=== PATIENT | male | born 1985 | race Caucasian/White ===

== ENCOUNTER 2019-09-23 19:21 | Emergency (ER) | payer OTHER ==
[2019-09-23 19:40] VITALS: BP 100/63; PULSE 75; TEMP 99.1; BMI 25.7
--- NOTE | 2019-09-23 20:29 | PDOC ---
History of Present Illness - General Chief Complaint: Wound Stated Complaint: RL INFECTION Time Seen by Provider: 09/23/19 19:43 History Source: Patient Exam Limitations: No Limitations Past History - Travel History Traveled outside of the country in the last 30 days: No Close contact w/someone who was outside of country & ill: No - Medical History Home Medications: Ambulatory Orders Cephalexin Monohydrate [Keflex -] 500 mg PO BID #14 capsule 09/23/19 Sulfamethoxazole/Trimethoprim [Bactrim Ds -] 1 tab PO BID #14 tablet 09/23/19 COPD: No - Psycho-Social/Smoking History Smoking History: Never smoked - Substance Abuse Hx (Audit-C & DAST Scrn) How often the patient has a drink containing alcohol: Never Score: In Men: 4 or > Positive; In Women: 3 or > Positive: 0 Screen Result (Pos requires Nsg. Audit-10AR): Negative In the last yr the pt used illegal drug/Rx for NonMed reason: Yes Score: Yes response is considered Positive: 1 Screen Result (Positive result requires Nsg. DAST-10): Positive Review of Systems - Review of Systems Able to Perform ROS?: Yes Comments:: 09/23/19 20:23 CONSTITUTIONAL: Absent: fever, chills, diaphoresis, generalized weakness, malaise, loss of appetite MUSCULOSKELETAL: Absent: myalgia, arthralgia, joint swelling SKIN: Present: skin infection Absent: rash, itching, pallor NEUROLOGIC: Absent: headache, focal weakness or paresthesias, dizziness, unsteady gait, seizure, mental status changes, bladder or bowel incontinence PSYCHIATRIC: Absent: anxiety, depression, suicidal or homicidal ideation, hallucinations. Is the patient limited Estonian proficient: No *Physical Exam - Vital Signs Last Vital Signs Temp Pulse Resp BP Pulse Ox 99.1 F 75 19 100/63 97 09/23/19 19:36 09/23/19 19:36 09/23/19 19:36 09/23/19 19:36 09/23/19 19:36 - Physical Exam 09/23/19 20:24 GENERAL: The patient is awake, alert, and fully oriented, in no acute distress. HEAD: Normal with no signs of trauma. EYES: Pupils equal, round and reactive to light, extraocular movements intact, sclera anicteric, conjunctiva clear. EXTREMITIES: Normal range of motion, no edema. NEUROLOGICAL: Normal speech, normal gait. PSYCH: Normal mood, normal affect. SKIN: Open pustular area with a black center to the right posterior thigh. A second small freely mobile nodule felt at the belt line on the right side with no active infection. Warm, Dry, normal turgor, no rashes or lesions noted. Medical Decision Making - Medical Decision Making 09/23/19 20:30 The patient is a 34-year-old male with no past medical history who presents to the ER today concerned for a wound to his right thigh. He states that he has had the area for approximately 6 months and approximately 3 days ago it started to swell up and become puffy. He states he popped it and a large blackhead and pus came out behind it. He is concerned it is further infected so he came to the ER for evaluation. Denies fever, chills, pain to the extremity. A/P: Wound infection On exam small 1 cm round open area to the right lower thigh. Small round dusky area concerning for possible infection. No area of fluctuance. Will place on Bactrim and Keflex Discharge home with dermatology follow-up. I discussed the physical exam findings, ancillary test results and final diagnoses with the patient. I answered all of the patient's questions. The patient was satisfied with the care received and felt comfortable with the discharge plan and treatment plan. The Patient agrees to follow up with the primary care physician/specialist within 24-72 hours. Return precautions were given. Discharge - Discharge Information Problems reviewed: Yes Clinical Impression/Diagnosis: Encounter for wound care Condition: Stable Disposition: HOME - Admission No - Follow up/Referral Referrals: Yifan De La Garza [Primary Care Provider] - Isabell Weaver MD [Staff Physician] - - Patient Discharge Instructions Patient Printed Discharge Instructions: DI for Cellulitis -- Adult Additional Instructions: You have cellulitis. This is a skin infection. Please take the Bactrim and Keflex twice a day for one week. Please take all the antibiotics even if you feel better. You may use warm water soaks to the area. Please do this approximately 4-5 times a day. Please avoid shaving the skin around the area of redness. You may take Tylenol or Motrin as needed for pain. Please follow up with your primary care doctor in 1 week. Return to the emergency department if you have worsening redness, fevers, increasing pain, or have any changes in your symptoms. - Post Discharge Activity
== END 2019-09-23 20:57 | disposition home or self-care (01) ==
LOC: JER 19:21 → JERFT 19:21
DX: S81.801A Unspecified open wound, right lower leg, initial encounter (principal)
CPT/HCPCS: 99283-25

== ENCOUNTER 2020-10-05 20:39 | Emergency (ER) | payer OTHER ==
[2020-10-05 20:51] VITALS: BP 110/70; PULSE 81; TEMP 98; BMI 25.8
[2020-10-05] MEDS ORDERED: IBUPROFEN 600 MG TABLET (FP) PO ONE ×2 (22:45→22:46)
== END 2020-10-05 23:00 | disposition home or self-care (01) ==
LOC: JERFT 20:39
PROC: 0HQGXZZ Repair Left Hand Skin, External Approach (ICD-10-PCS; principal; 2020-10-05)
DX: S63.92XA Sprain of unspecified part of left wrist and hand, initial encounter (principal); S61.412A Laceration without foreign body of left hand, initial encounter; W22.8XXA Striking against or struck by other objects, initial encounter
CPT/HCPCS: 73110-TC-LT-FY; 73130-TC-LT-FY; 99283-25